=== PATIENT | female | born 1965 | race Two or more races ===

== ENCOUNTER 2018-01-13 19:18 | Emergency (ER) | payer MEDICAID, OTHER ==
[~2018-01-13] VITALS: Ht 157.5 cm; Wt 94.9 kg
[2018-01-13 20:21] LABS: Basophils # (auto) 0.1 uL; Eosinophils # (auto) 0.3 uL; Hemoglobin 11.8 g/dL (12.2-16.2); Lymphocytes # (auto) 1.6 uL; Mean Corpuscular Hemoglobin 23.6 pg (28.0-32.0); Monocytes # (auto) 0.7 uL; Neutrophils # (auto) 3.4 uL; Nucleated Red Blood Cells % 0.1 %
[2018-01-13 20:23] LABS: Basophils % (auto) 1.1 % (0.0-2.0); Eosinophils % (auto) 4.9 % (0.0-7.0); Hematocrit 36.7 % (36.0-46.0); Lymphocytes % (auto) 26.9 % (10.0-50.0); Mean Corpuscular Hgb Conc. 32.1 g/dL (32.0-36.0); Mean Corpuscular Volume 73.4 fL (80.0-100.0); Neutrophils % (auto) 56.1 % (37.0-80.0); Platelet Count (auto) 256 10^3/uL (140-450)
[2018-01-13 20:40] LABS: Albumin 3.7 g/dL (3.4-5.0); BUN/Creatinine Ratio 15.9; Bilirubin, Total 0.3 mg/dL (0.2-1.0); Calcium 8.1 mg/dL (8.5-10.1); Potassium 3.7 mmol/L (3.5-5.1); Total Protein 7.8 g/dL (6.4-8.2)
[2018-01-13 21:38] LABS: Urine Bacteria NONE SEEN /hpf (None Seen); Urine Blood TRACE /uL (Negative); Urine Mucus FEW (None Seen); Urine Specific Gravity 1.029 (1.001-1.035); Urine WBC 9 /hpf (0 - 5)
[2018-01-14 02:21] VITALS: BP 173/64
[2018-01-14] MEDS ORDERED: KETOROLAC TROMETH 60MG/2ML VIAL IM ONE (02:45)
== END 2018-01-14 02:51 | disposition home or self-care (01) ==
LOC: ER 19:18
DX: S33.5XXA Sprain of ligaments of lumbar spine, initial encounter (principal); N39.0 Urinary tract infection, site not specified; N28.9 Disorder of kidney and ureter, unspecified; E11.9 Type 2 diabetes mellitus without complications; E78.5 Hyperlipidemia, unspecified; E66.01 Morbid (severe) obesity due to excess calories; Z68.38 Body mass index [BMI] 38.0-38.9, adult; Z90.49 Acquired absence of other specified parts of digestive tract; X58.XXXA Exposure to other specified factors, initial encounter; Y93.89 Activity, other specified; Y99.8 Other external cause status; Y92.89 Other specified places as the place of occurrence of the external cause
CPT/HCPCS: 36415; 72131; 80053; 81001; 81025; 82962; 85025; 93005; 96372; 99285; J1885